=== PATIENT | female | born 1960 | race Caucasian/White ===

== ENCOUNTER 2023-07-20 11:25 | Day surgery (SDC) | payer MEDICAID, OTHER ==
[2023-07-19 12:07] VITALS: BMI 31.3
[~2023-07-20 11:25] MED LIST: LIDOCAINE 1% (10MG/ML) FOR IV START INTRADERMA PRN; MIDAZOLAM 2 MG/2 ML VIAL IV PRN
[2023-07-20 12:26] VITALS: TEMP 98.1
[2023-07-20] MEDS: IV FLUID CONTINUATION 1,000 ML IV ONE (12:37)
[2023-07-20] MEDS: LACTATED RINGERS 1,000 ML IV SCH (12:38)
[2023-07-20] MEDS ORDERED: PROPOFOL 10 MG/ML 20 ML VIAL IV ONE (13:23)
[2023-07-20] MEDS ORDERED: LIDOCAINE 2% (PF) 20 MG/ML 5 ML VIAL ONE (13:23)
--- NOTE | 2023-07-20 13:40 | P.PCN ---
Date of Procedure: 07/20/23 Procedure(s) Performed: BRIEF HISTORY: Patient is a 63-year-old, pleasant, white female scheduled for an upper endoscopy as a part evaluation of GERD and atypical chest pain of 2 years duration. Currently providing 20 mg daily with some improvement in symptoms PROCEDURE PERFORMED: Esophagogastroduodenoscopy with biopsy. PREOPERATIVE DIAGNOSIS: GERD/atypical chest pain. IV sedation per anesthesia. PROCEDURE: After informed consent was obtained, the patient was brought into the endoscopy unit. IV sedation was administered by Anesthesia under continuous monitoring. Initially the Olympus GIF-140 video endoscope was inserted into the mouth. Esophagus intubated without any difficulty. It was gradually advanced into the stomach and duodenum and carefully examined. The bulb and the second part of the duodenum appeared normal. The scope at this time was withdrawn to the stomach, adequately insufflated with air, and upon careful examination, mucosa of the antrum diffuse gastritis and biopsies were done from this area. Mucosa, body, cardia and the fundus appeared normal. The scope was then wit hdrawn into the esophagus. The GE junction was located at 39 cm from the incisors. The esophagus appeared normal. There were no erosions or ulcerations seen, biopsies were done from the distal soft and the patient tolerated the procedure well. IMPRESSION: 1. Mild antral gastritis. 2. No evidence of esophagitis or Mahoney's esophagus. RECOMMENDATIONS: The findings of this examination were discussed with the patient as well as her family.. Advised to follow-up with the biopsy results. Advised to increase her Protonix to 40 mg twice daily for 3 months and follow antireflux measures
[2023-07-20 13:47] VITALS: RESP 16
[2023-07-20 14:12] VITALS: BP 113/58; PULSE 74
== END 2023-07-20 14:43 | disposition home or self-care (01) ==
LOC: ORWHC2ENDO 11:25
PROVIDERS: ATTEND Internal Medicine Gastroenterology
DX: K29.50 Unspecified chronic gastritis without bleeding (principal); K21.9 Gastro-esophageal reflux disease without esophagitis; I10 Essential (primary) hypertension; E78.5 Hyperlipidemia, unspecified; Z88.5 Allergy status to narcotic agent; Z91.040 Latex allergy status; Z79.899 Other long term (current) drug therapy; Z90.49 Acquired absence of other specified parts of digestive tract; Z98.890 Other specified postprocedural states
CPT/HCPCS: 88305; 88342; 43239; J2704; J2001

== ENCOUNTER 2023-12-31 05:34 | Day surgery (SDC) | payer OTHER ==
[~2023-12-31 05:34] MED LIST changes: +ALPRAZolam 0.25 MG TAB PO PRN; +ALPRAZolam 0.5 MG TAB PO PRN; +ASPIRIN 325 MG TAB PO STA; +ATORVASTATIN 80 MG TAB PO STA; -LIDOCAINE 1% (10MG/ML) FOR IV START INTRADERMA PRN; -MIDAZOLAM 2 MG/2 ML VIAL IV PRN; +NITROGLYCERIN SL TABS 0.4 MG TAB SUBLINGUAL PRN
[2023-12-31] MEDS: SODIUM CHLORIDE 0.9% 1,000 ML in EMPTY BAG 1 BAG IV SCH (06:39)
[2023-12-31 06:41] VITALS: RESP 16; TEMP 97
[2023-12-31] MEDS: SODIUM CHLORIDE 0.9% 1,000 ML IV ONE (06:41)
[2023-12-31 07:01] LABS: African American GFR (CKD) 75 (>60 ml/min/1.73 sqM); Anion Gap 7 mmol/L; Blood Urea Nitrogen 25 mg/dL (7-17); Calcium 9.1 mg/dL (8.4-10.2); Carbon Dioxide 23 mmol/L (22-30); Chloride 105 mmol/L (98-107); Glucose 130 mg/dL (74-99); Non-African American GFR(CKD) 65 (>60 ml/min/1.73 sqM); Potassium 3.7 mmol/L (3.5-5.1); Sodium 135 mmol/L (137-145)
[2023-12-31] MEDS: LIDOCAINE 1% INJ 10MG/ML (20 ML MDV) SQ ONE (07:43)
[2023-12-31] MEDS: VERAPAMIL SYRINGE (5 MG/10 ML) INTRAARTER ONE (07:44)
[2023-12-31] MEDS: MIDAZOLAM 2 MG/2 ML VIAL IVP ONE (07:44)
[2023-12-31] MEDS: HEPARIN SODIUM 1,000 UN/ML (10ML VL) IVP ONE (07:46)
[2023-12-31] MEDS: HEPARIN SODIUM,PORCINE 10,000 UNIT in SODIUM CHLORIDE 0.9% 1,000 ML IRRIGATION PRN (07:49)
[2023-12-31] MEDS: HEPARIN SODIUM,PORCINE (1 ML) 2,500 UNIT in SODIUM CHLORIDE 0.9% 250 ML IRRIGATION PRN (07:49)
[2023-12-31] MEDS ORDERED: RX INFO: IV CONTRAST WAS GIVEN 1 EACH MISC MISCELLANE PRN (07:56)
[2023-12-31] MEDS: IOPAMIDOL-370 100ML BTL INJ ONE (07:57)
--- NOTE | 2023-12-31 07:59 | P.PCN ---
Date of Procedure: 12/31/23 Operative Findings: CARDIAC CATHETERIZATION PERFORMING PHYSICIAN: Jono Aly MD, RPVI PROCEDURE PERFORMED: 1. Selective right and left coronary angiogram 2. Left heart catheterization 3. Ultrasound-guided access of the right radial artery INDICATION: Chest discomfort concerning for angina COMPLICATION: None APPROACH: Right radial artery LEVEL OF SEDATION: Moderate with a sedation length of 13 minutes PROCEDURE DESCRIPTION: After obtaining an informed consent, the patient was brought to cardiac cardiac catheterization technician. Local anesthesia was performed using lidocaine subcutaneously. The right radial artery was cannulated using Seldinger technique, the guidewire passed easily, following that we advanced a 5-Burkinan sheath dilator assembly, the wire and dilator were removed and sheath was flushed. Following that, 2 mg of verapamil along with 5000 unit heparin were given. Selective right and left coronary angiogram using a 6-Burkinan JR4 and JL 3.5 catheters. Following that we did left heart catheterization using 6-Burkinan pigtail catheter. The procedure was completed there was no complication. SELECTIVE CORONARY ANGIOGRAM: The right coronary artery: Large-caliber vessel and a dominant vessel with mild disease only Left main: Is angiographically normal The left circumflex: Large-caliber vessel nondominant vessel with no evidence of high-grade stenosis The left anterior descending artery: The proximal LAD by the bifurcation of a diagonal branch has a lesion appears to be in the range of 30%. No evidence of high-grade stenosis was identified HEMODYNAMICS: The LVEDP was 10 mmHg with no significant gradient across aortic valve CONCLUSION: 1. Mild disease involving the proximal LAD by the bifurcation of a diagonal branch 2. Normal left-sided filling pressure POSTPROCEDURE MANAGEMENT: Medical treatment
[2023-12-31] MEDS ORDERED: SODIUM CHLORIDE 0.9% 1,000 ML IV SCH (08:00)
[2023-12-31 11:33] VITALS: BP 108/56; PULSE 70
== END 2023-12-31 11:57 | disposition home or self-care (01) ==
LOC: CATHCVL 05:34
PROVIDERS: ATTEND Internal Medicine Interventional Cardiology
DX: I35.9 Nonrheumatic aortic valve disorder, unspecified (principal); I77.819 Aortic ectasia, unspecified site; I10 Essential (primary) hypertension; E78.5 Hyperlipidemia, unspecified; E66.3 Overweight; Z68.34 Body mass index [BMI] 34.0-34.9, adult; Z79.899 Other long term (current) drug therapy
CPT/HCPCS: 93458; 80048; C1769; C1894; J2250; J1644 ×3; J2003; Q9967